=== PATIENT | male | born 1995 | race Caucasian/White ===

== ENCOUNTER 2017-09-12 01:30 | Emergency (ER) | payer SELFPAY ==
[~2017-09-12] VITALS: Ht 170.2 cm; Wt 58.0 kg
[2017-09-12 01:37] VITALS: BP 105/66; PULSE 75; RESP 14; TEMP 98.8; O2SAT 97
[2017-09-12] MEDS ORDERED: SODIUM CHLOR 0.9% 1000 ML INJ 1,000 ML IV ONE (01:41)
[2017-09-12 03:17] LABS: BICARBONATE 26.8 MEQ/L (21.0-32.0); CALCIUM 8.1 MG/DL (8.5-10.1); CREATININE 0.85 MG/DL (0.60-1.30)
--- NOTE | 2017-09-12 03:42 | PD ---
HPI Chief Complaint: Alcohol/Drug Intoxication Time Seen by Provider: 03:38 Travel History International Travel<30 days: No Contact w/Intl Traveler<30days: No Traveled to known affect area: No History of Present Illness HPI The patient is a 22-year-old male who presents to the emergency department via EMS for alcohol intoxication. The patient was found at a local nightclub, sitting on the ground, leaning against a wall. The patient was noted to be intoxicated. EMS states patient noted he had been drinking alcohol earlier tonight but denied any drug ingestion. He also stated the patient stated he had no medical history prior to arrival. Upon arrival the patient appears intoxicated, is lethargic, wounds draws the pain, provides no useful information. [facility] Past Medical History Medical History: Unable to Obtain Past Surgical History Surgical History: Unable to Obtain Social History Alcohol Use: Yes Tobacco Use: No Substance Use: No (UNABLE TO ASSESS) Allergies-Medications (Allergen,Severity, Reaction): Coded Allergies: No Allergy Information Available (Unverified , 09/12/17) Reported Meds & Prescriptions Reported Meds & Active Scripts Active No Active Prescriptions or Reported Medications Review of Systems Except as stated in HPI: all other systems reviewed are Neg Neurologic: Positive: Change in Mentation Psychiatric: Positive: Substance Abuse (Alcohol ingestion) Physical Exam Narrative GENERAL: 22-year-old male who appears intoxicated, withdraws to pain, but is unable to provide any useful information. SKIN: Focused skin assessment warm/dry. HEAD: Atraumatic. Normocephalic. EYES: Pupils equal and round. 3 mm bilateral and reactive. ENT: No nasal bleeding or discharge. Breath smells of alcohol. NECK: Trachea midline. No JVD. CARDIOVASCULAR: Regular rate and rhythm. No murmur appreciated. RESPIRATORY: No accessory muscle use. Clear to auscultation. Breath sounds equal bilaterally. GASTROINTESTINAL: Abdomen soft, non-tender, nondistended. No rebound tenderness. MUSCULOSKELETAL: No obvious deformities. No clubbing. No cyanosis. No edema. NEUROLOGICAL: Withdraws to pain. Positive gag reflex. PSYCHIATRIC: Appears intoxicated. Data Data Last Documented VS Vital Signs Date Time Temp Pulse Resp B/P (MAP) Pulse Ox O2 Delivery O2 Flow Rate FiO2 09/12/17 01:37 98.8 75 14 105/66 (79) 97 Orders Orders Alcohol (Ethanol) (09/12/17 01:39) Basic Metabolic Panel (Bmp) (09/12/17 01:39) Sodium Chlor 0.9% 1000 Ml Inj (Ns 1000 M (09/12/17 01:41) Labs Laboratory Tests Test 09/12/17 01:39 Blood Urea Nitrogen 13 MG/DL Creatinine 0.85 MG/DL Random Glucose 147 MG/DL Calcium Level 8.1 MG/DL Sodium Level 145 MEQ/L Potassium Level 3.2 MEQ/L Chloride Level 108 MEQ/L Carbon Dioxide Level 26.8 MEQ/L Anion Gap 10 MEQ/L Estimat Glomerular Filtration Rate 113 ML/MIN Ethyl Alcohol Level 201 MG/DL [facility] Medical Decision Making Medical Screen Exam Complete: Yes Emergency Medical Condition: Yes Medical Record Reviewed: Yes Interpretation(s) Laboratory Tests Test 09/12/17 01:39 Blood Urea Nitrogen 13 MG/DL Creatinine 0.85 MG/DL Random Glucose 147 MG/DL Calcium Level 8.1 MG/DL Sodium Level 145 MEQ/L Potassium Level 3.2 MEQ/L Chloride Level 108 MEQ/L Carbon Dioxide Level 26.8 MEQ/L Anion Gap 10 MEQ/L Estimat Glomerular Filtration Rate 113 ML/MIN Ethyl Alcohol Level 201 MG/DL Differential Diagnosis Differential diagnosis includes alcohol intoxication, closed head injury, encephalopathy, drug ingestion. Narrative Course IV was established, labs are drawn and sent, the patient was placed on cardiac telemetry monitoring and continuous pulse oximetry monitoring. The patient had a positive gag reflex, would withdraw the pain. Head of bed was placed up at 30 . The patient was administered 1 L of IV fluids. Alcohol level was elevated at 201. The patient was monitored in the emergency department. The patient will be discharged when she is awake and ambulatory and has a safe ride and disposition home. Diagnosis Primary Impression: Alcohol intoxication Qualified Codes: F10.920 - Alcohol use, unspecified with intoxication, uncomplicated Patient Instructions: General Instructions Additional Instructions: Decrease alcohol intake. Follow-up with your primary physician. Return if symptoms worsen or progress. Med/Other Pt SpecificInfo: No Change to Meds Scripts No Active Prescriptions or Reported Meds Disposition: 01 DISCHARGE HOME Condition: Stable Chapincito Kam MD September 12, 2017 03:42
[2017-09-12 04:52] VITALS: BP 122/56; PULSE 76; RESP 16; O2SAT 98
== END 2017-09-12 05:26 | disposition home or self-care (01) ==
LOC: NEPC 01:30
DX: F10.920 Alcohol use, unspecified with intoxication, uncomplicated (principal)
CPT/HCPCS: 80048; 80307; 96360; 99284; J7030